=== PATIENT | male | born 1960 | race Caucasian/White ===

== ENCOUNTER 2016-06-17 18:00 | Inpatient (IN) | payer OTHER ==
[~2016-06-17 18:00] MED LIST: CEFEPIME HCL 2 GM in D5W 100 ML IV SCH
--- NOTE | 2016-06-17 18:22 | EDPHY ---
H & P Time Seen by Provider: 06/17/16 18:20 HPI/ROS: Chief complaint. Fever and low white blood cell count HPI. 56-year-old male with history of metastatic prostate cancer here with fever to 101.5 degrees. Last chemotherapy 12 days ago. Neutrophil count 600 today. Fever began yesterday. He does have sore throat but no cough, shortness of breath or abdominal pain. No urinary symptoms. Seen by oncologist today referred to the emergency department for admission. ROS Constitutional. Fever Eyes. no problems with vision ENT. Sore throat Cardiovascular. no chest pain Respiratory. no shortness of breath, no cough Abdominal. no abdominal pain, no nausea/vomiting, no diarrhea . no problems urinating MS. no calf pain/swelling, no neck/back pain, no joint pain Skin. no rash Lymph. no swollen glands Neuro. no headache, no dizziness, no difficulty walking or with speech Past Medical/Surgical History: Metastatic prostate cancer Social History: , nonsmoker, no alcohol Smoking Status: Never smoked Physical Exam: General Appearance: Alert well-developed male mild distress vital signs show temp 37.7degrees with heart rate 112. Blood pressure 110/69 Eyes: Pupils equal and round no pallor or injection. ENT, pharynx really has no injection or swelling. There is no exudate. No evidence for peritonsillar abscess. Respiratory: There are no retractions, lungs are clear to auscultation. Cardiovascular: Regular rate and rhythm. Gastrointestinal: Abdomen is soft and nontender, no masses, bowel sounds normal. Neurological: Awake and alert, sensory and motor exams grossly normal. Skin: Warm and dry, no rashes. Musculoskeletal: Neck is supple nontender. Extremities symmetrical, full range of motion. Psychiatric: Patient is oriented X 3, there is no agitation. Constitutional: Initial Vital Signs Temperature (C) 37.7 C 06/17/16 18:08 Heart Rate 112 H 06/17/16 18:08 Respiratory Rate 16 06/17/16 18:08 Blood Pressure 110/69 06/17/16 18:08 O2 Sat (%) 96 06/17/16 18:08 O2 Delivery Mode Room Air Allergies/Adverse Reactions: levofloxacin [From Levaquin] Allergy (Verified 06/17/16 18:07) Home Medications: Medication Instructions Recorded DOCEtaxel [Docetaxel] 1 dose IV .[id number] 06/17/16 Herbals/Supplements -Info Only 1 ea PO DAILY 06/17/16 LORazepam [Ativan (*)] 2 mg PO HS PRN 06/17/16 Lupron Im 1 dose IM .[id number] 06/17/16 Medical Decision Making - Diagnostics Imaging Results: Imaging Impressions Chest X-Ray 06/17/16 18:50 Impression: 1. Band of subsegmental atelectasis suspected at the left base. Otherwise, no active cardiopulmonary disease seen.. Chest x-ray interpreted by me is negative for pneumonia Procedures: IV normal saline. Septic workup 30 male per kg fluid bolus. Initial lactate positive at 2.3 Cefepime and vancomycin as recommended by patient's oncologist after blood cultures ED Course/Re-evaluation: Re-evaluation 7:15 p.m.. The patient, his , and I discussed treatment plan including need for admission and further evaluation. They expressed understanding and agreement I consulted and discussed the case with , hospitalist, who agrees to the admission Dr. Salazar oncology--[phone]. Differential Diagnosis: The patient has prostate cancer and neutropenic fever. I have considered pneumonia, urinary tract infection, sepsis as well - Data Points Laboratory Results: Laboratory Results 06/17/16 18:34 06/17/16 18:34 06/17/16 06/17/16 06/17/16 18:50 18:34 18:34 WBC RBC Hgb Hct MCV MCH MCHC RDW Plt Count MPV Neut % (Auto) Lymph % (Auto) Bledsoe % (Auto) Eos % (Auto) Baso % (Auto) Nucleat RBC Rel Count Absolute Neuts (auto) Absolute Lymphs (auto) Absolute Monos (auto) Absolute Eos (auto) Absolute Basos (auto) Absolute Nucleated RBC Immature Gran % Seg Neutrophils % Band Neutrophils % Lymphocytes % Monocytes % Eosinophils % Basophils % Immature Gran # Absolute Seg Neuts Absolute Band Neuts Absolute Lymphocytes Absolute Monocytes Absolute Eosinophils Absolute Basophils RBC/WBC/PLT Morphology Atypical Lymphocytes Platelet Estimate Smear Review By PT 13.5 SEC SEC (12.0-15.0) INR 1.04 (0.83-1.16) APTT 30.7 SEC SEC (23.0-38.0) VBG Lactic Acid 2.3 mmol/L H mmol/L (0.7-2.1) Sodium 137 mEq/L mEq/L (134-144) Potassium 4.0 mEq/L mEq/L (3.5-5.2) Chloride 101 mEq/L mEq/L (97-110) Carbon Dioxide 22 mEq/l mEq/l (22-31) Anion Gap 14 mEq/L mEq/L (8-16) BUN 13 mg/dL mg/dL (7-23) Creatinine 1.1 mg/dL mg/dL (0.7-1.3) Estimated GFR > 60 Glucose 159 mg/dL H mg/dL (70-100) Calcium 9.3 mg/dL mg/dL (8.5-10.4) Total Bilirubin 0.9 mg/dL mg/dL (0.1-1.4) 06/17/16 18:34 WBC 1.95 10^3/uL L 10^3/uL (3.80-9.50) RBC 4.60 10^6/uL 10^6/uL (4.40-6.38) Hgb 13.7 g/dL g/dL (13.7-17.5) Hct 40.1 % % (40.0-51.0) MCV 87.2 fL fL (81.5-99.8) MCH 29.8 pg pg (27.9-34.1) MCHC 34.2 g/dL g/dL (32.4-36.7) RDW 12.8 % % (11.5-15.2) Plt Count 266 10^3/uL 10^3/uL (150-400) MPV 9.2 fL fL (8.7-11.7) Neut % (Auto) Not Reported Lymph % (Auto) Not Reported Bledsoe % (Auto) Not Reported Eos % (Auto) Not Reported Baso % (Auto) Not Reported Nucleat RBC Rel Count 0.0 % % (0.0-0.2) Absolute Neuts (auto) Not Reported Absolute Lymphs (auto) Not Reported Absolute Monos (auto) Not Reported Absolute Eos (auto) Not Reported Absolute Basos (auto) Not Reported Absolute Nucleated RBC 0.00 10^3/uL 10^3/uL (0-0.01) Immature Gran % Not Reported Seg Neutrophils % 37 % % Band Neutrophils % 8 % % Lymphocytes % 29 % % Monocytes % 20 % % Eosinophils % 4 % % Basophils % 2 % % Immature Gran # Not Reported Absolute Seg Neuts 0.72 10^/uL L 10^/uL (1.70-6.50) Absolute Band Neuts 0.16 10^3/uL 10^3/uL (0.00-0.70) Absolute Lymphocytes 0.57 10^3/uL L 10^3/uL (1.00-3.00) Absolute Monocytes 0.39 10^3/uL 10^3/uL (0.30-0.80) Absolute Eosinophils 0.08 10^3/uL 10^3/uL (0.03-0.40) Absolute Basophils 0.04 10^3/uL 10^3/uL (0.02-0.10) RBC/WBC/PLT Morphology NORMAL (NORMAL) Atypical Lymphocytes 2+ H Platelet Estimate ADEQUATE (ADEQ) Smear Review By Pending PT INR APTT VBG Lactic Acid Sodium Potassium Chloride Carbon Dioxide Anion Gap BUN Creatinine Estimated GFR Glucose Calcium Total Bilirubin Medications Given: Discontinued Medications Cefepime HCl 2 gm/ Dextrose 100 mls @ 200 mls/hr IV EDNOW ONE PRN Reason: Protocol Stop: 06/17/16 19:18 Last Admin: 06/17/16 20:50 Dose: 100 mls Vancomycin/Sodium Chloride (Vancomycin 1 Gm (Premix)) 250 mls @ 250 mls/hr IV EDNOW ONE PRN Reason: Protocol Stop: 06/17/16 19:49 Last Admin: 06/17/16 19:34 Dose: 250 mls Sodium Chloride (Ns) 2,500 mls @ 5,000 mls/hr 30 ml/kg infuse over 30 min ( 2500 ml) IV EDNOW ONE Stop: 06/17/16 19:44 Last Admin: 06/17/16 19:34 Dose: 2,500 mls Departure - Departure Disposition: [facility] Inpatient Acute Clinical Impression: Neutropenic fever Condition: Fair
[2016-06-17] MEDS ORDERED: CEFEPIME HCL 2 GM in D5W 100 ML IV ONE (18:49)
[2016-06-17] MEDS ORDERED: VANCOMYCIN HCL/NORMAL SALINE 250 ML IV ONE (18:50)
[2016-06-17 18:56] LABS: ADD DIFF? YES; ADD MORPH? NO; ATYPICAL LYMPHOCYTE FLAG 50 (0-99); FRAGMENT RBC FLAG 0 (0-99); HEMATOCRIT 40.1 % (40.0-51.0); HEMOGLOBIN 13.7 g/dL (13.7-17.5); LIPEMIA HEMOLYSIS FLAG 90 (0-99); MEAN CELL HEMOGLOBIN 29.8 pg (27.9-34.1); MEAN CELL HEMOGLOBIN CONCENTR. 34.2 g/dL (32.4-36.7); MEAN CELL VOLUME 87.2 fL (81.5-99.8); MEAN PLATELET VOLUME 9.2 fL (8.7-11.7); PLATELET CLUMPS FLAG 0 (0-99); PLATELET COUNT 266 10^3/uL (150-400); RED CELL DISTRIBUTION WIDTH 12.8 % (11.5-15.2)
[2016-06-17 18:58] LABS: ADD SCAN? NO; LEFT SHIFT FLG 150 (0-99)
[2016-06-17 19:01] LABS: INR 1.04 (0.83-1.16); PROTIME(PATIENT) 13.5 SEC (12.0-15.0)
[2016-06-17 19:02] LABS: APTT 30.7 SEC (23.0-38.0)
[2016-06-17] MEDS ORDERED: NS 2,500 ML IV ONE (19:15)
[2016-06-17 19:21] LABS: ANION GAP 14 mEq/L (8-16); BILIRUBIN,TOTAL 0.9 mg/dL (0.1-1.4); CALCIUM 9.3 mg/dL (8.5-10.4); CARBON DIOXIDE 22 mEq/l (22-31); CHLORIDE 101 mEq/L (97-110); CREATININE 1.1 mg/dL (0.7-1.3); GLOMERULAR FILTRATION RATE > 60; GLUCOSE 159 mg/dL (70-100); SODIUM 137 mEq/L (134-144)
[2016-06-17] MEDS ORDERED: ONDANSETRON 4 MG/2 ML VIAL IVP PRN (19:38)
[2016-06-17 19:56] LABS: LACGHOST ORDER
[2016-06-17 19:59] LABS: COLOR YELLOW; LEUKOCYTE ESTERASE,URINE NEGATIVE (NEGATIVE); NITRITE,URINE NEGATIVE (NEGATIVE)
[2016-06-17 19:59] LABS: PLATELET ESTIMATE ADEQUATE (ADEQ)
--- NOTE | 2016-06-17 20:22 | GHP ---
[f rep st] HISTORY AND PHYSICAL DATE OF ADMISSION: 06/17/2016 CHIEF COMPLAINT: Fever. HISTORY: The patient is a 56-year-old male with metastatic prostate cancer undergoing chemotherapy at [facility]. He is on his 2nd round of chemo. He had a fever starting last nig ht. This morning it was 101.5. He contacted his oncologist, who did an outpatient blood draw and f ound him to be neutropenic and he was referred to the emergency room. He does complain of sore thro at for the last 2 days and lots of congestion and pain in his frontal sinuses that also show blood w hen he drains. He also recently, 2 weeks ago, had a ureteral dilation procedure at [facility] for some scar tissue and stricturing that occurred after his radical prostatectomy which he had last January. PAST MEDICAL HISTORY: Metastatic prostate cancer. PAST SURGICAL HISTORY: 1. Radical prostatectomy. 2. Bilateral inguinal hernia repair. MEDICATIONS: Please see computer record for full detailed list. ALLERGIES: Levaquin. SOCIAL HISTORY: No smoking. No alcohol. Lives with his . He has a guest relation officer. REVIEW OF SYSTEMS: Complete Review of Systems obtained. Review of Systems is negative regarding CO NSTITUTIONAL, HEENT, GI, PULMONARY, CARDIOVASCULAR, , HEMATOLOGY, SKIN, MUSCULOSKELETAL, ENDOCRINE , PSYCH except for positives as in HPI. FAMILY HISTORY: His mom lived to age 89. His father at age 62 of alcohol-related complication s. PHYSICAL EXAMINATION: GENERAL: Well-developed, well-nourished male, in no acute distress. VITAL S IGNS: Temperature is 37.7, pulse 112, blood pressure 110/69, saturating 96% on room air. HEENT: Ey es: Normal conjunctivae. Pupils are equal and reactive to light. ENT: Normal ears, nose. Hearing intact. Normal lips and teeth. Oropharynx moist. There is no thrush, no oral ulcers. NECK: Trac hea midline. No thyromegaly. CHEST: Normal respiratory effort. LUNGS: Clear to auscultation bonnie aterally. CARDIOVASCULAR: Regular rhythm. No murmur. No lower extremity edema. ABDOMEN: Soft, nontender. No hepatosplenomegaly. SKIN: Warm, dry, intact. No rash. MUSCULOSKELETAL: No cyanos is or clubbing. Strength 5/5 upper and lower extremities. NEUROLOGIC: Cranial nerves intact. Nor mal sensation to light touch. PSYCH: Alert and oriented x3. Normal affect. Normal judgment. Nor mal insight. Normal memory. LABORATORY DATA: White count 1.95. The differential is pending. Hematocrit 40, platelets 266. So dium 137, potassium 4.0, chloride 101, bicarb 22, BUN 13, creatinine 1.11, glucose 159. INR is 1.04 . Lactate is 2.3. Chest x-ray is negative. This case was discussed with Dr. Dodson, emergency room physician. He spoke with the oncologist at [facility] and cefepime and vancomycin were recommended as antibiotics. ASSESSMENT/PLAN: 1. Neutropenic fever. His oncologist at [facility] recommended cefepime and vancomycin wh ich I will continue. Blood cultures are pending. I would think we could discontinue vancomycin ana n if his cultures remain negative as he does not have any indwelling port or line. We will investig ate for possible source of fever including checking a urinalysis. Will check him for strep throat. He could have sinusitis. This should all be adequately covered with antibiotics discussed above. 2. Severe sepsis. He will be placed on sepsis protocol. 3. Metastatic prostate cancer. Chemotherapy through [facility]. 4. Urethral stricture, status post recent dilation. As above, we will check a urinalysis as a poss ible source of fever. CODE STATUS: Full. ADMISSION STATUS: Will admit to inpatient as he is ill. Anticipate greater than [address] abilization. DVT PROPHYLAXIS: He is high risk. Will place him on subcu Lovenox. /[id number]/MODL
[2016-06-17] MEDS: NS 1,000 ML IV SCH (21:22)
[2016-06-17] MEDS: ACETAMINOPHEN 325 MG TAB PO PRN (21:22)
[2016-06-17] MEDS ORDERED: oxyCODONE IR 5 MG TAB PO PRN (21:46)
[2016-06-17] MEDS ORDERED: LORazepam 1 MG TAB PO PRN (21:46)
[2016-06-17] MEDS: LORazepam 0.5 MG TAB PO PRN (22:47)
[2016-06-18] MEDS: ACETAMINOPHEN 325 MG TAB PO PRN ×2 (04:33→17:55)
[2016-06-18] MEDS: LORazepam 0.5 MG TAB PO PRN (04:33)
[2016-06-18 04:37] LABS: ADD DIFF? YES; ADD MORPH? NO; ADD SCAN? NO; ATYPICAL LYMPHOCYTE FLAG 30 (0-99); FRAGMENT RBC FLAG 0 (0-99); HEMATOCRIT 36.6 % (40.0-51.0); HEMOGLOBIN 12.4 g/dL (13.7-17.5); LEFT SHIFT FLG 90 (0-99); LIPEMIA HEMOLYSIS FLAG 90 (0-99); MEAN CELL HEMOGLOBIN 29.6 pg (27.9-34.1); MEAN CELL HEMOGLOBIN CONCENTR. 33.9 g/dL (32.4-36.7); MEAN CELL VOLUME 87.4 fL (81.5-99.8); MEAN PLATELET VOLUME 9.4 fL (8.7-11.7); PLATELET CLUMPS FLAG 20 (0-99); PLATELET COUNT 220 10^3/uL (150-400); RED BLOOD CELL COUNT 4.19 10^6/uL (4.40-6.38); RED CELL DISTRIBUTION WIDTH 12.9 % (11.5-15.2)
[2016-06-18] MEDS: CEFEPIME HCL 2 GM in D5W 100 ML IV SCH ×3 (04:37→22:34)
[2016-06-18 04:40] LABS: ALANINE AMINOTRANSFERASE 57 IU/L (21-72); ALBUMIN 3.3 g/dL (3.5-5.0); ALKALINE PHOSPHATASE 77 IU/L (38-126); ANION GAP 6 mEq/L (8-16); ASPARTATE AMINOTRANSFERASE 39 IU/L (17-59); BILIRUBIN-CONJUGATED 0.4 mg/dL (0.0-0.5); BILIRUBIN-UNCONJUGATED 0.6 mg/dL (0.0-1.1); CALCIUM 7.8 mg/dL (8.5-10.4); CARBON DIOXIDE 22 mEq/l (22-31); CHLORIDE 109 mEq/L (97-110); CREATININE 0.9 mg/dL (0.7-1.3); GLOMERULAR FILTRATION RATE > 60; GLUCOSE 112 mg/dL (70-100); POTASSIUM 4.2 mEq/L (3.5-5.2); SODIUM 137 mEq/L (134-144); TOTAL PROTEIN 5.8 g/dL (6.3-8.2)
[2016-06-18 05:31] LABS: PLATELET ESTIMATE ADEQUATE (ADEQ); TOXIC GRANULATION PRESENT
[2016-06-18] MEDS: ENOXAPARIN 40 MG/0.4 ML SYR SC SCH (09:05)
[2016-06-18] MEDS: VANCOMYCIN HCL/NORMAL SALINE 250 ML IV SCH ×2 (09:05→19:58)
[2016-06-18] MEDS: NS 1,000 ML IV SCH ×2 (09:05→19:58)
--- NOTE | 2016-06-18 09:45 | SOAPPROG ---
SOAP Progress Note Assessment/Plan: Assessment: 56 yo male w/ metastatic prostate ca undergoing chemo at [facility], presented w/ fever and neutropenia to ER last night after labs returned earlier in the day to [facility] w/ neutropenia. Had elev lactate level as well, sepsis protocol initiated last night. Lactate has normalized. -febrile neutropenia - on vanco/cefepime - concern w/ possible rash from vanco - watching closely, is getting second dose. Watching blood cultures, will taper abx as able. Afebrile since 22:30 last night, chills and shakes resolved so far. Labs show slight improvement in wbc count, has bands increased though. Throat cx pending, ua neg, cxr neg. Most likely source is sinusitis - has had a lot of congestion and fullness samuel R maxillary sinus and nares for the past week. Cefepime covering well, may be able to ultimately change to ceftin depending on bcx results/progress. -metastatic prostate ca - per [facility] on chemo and lupron. May need some adjustment of chemo due to the neutropenia for next round. -h/o recent ureteral stricture (2 weeks ago) - UA neg, no dysuria. -dvt proph - on lovenox, ambulate. Plan: 06/18/16 09:34 Subjective: Feeling better, no further chills, good appetite, ate breakfast Objective: Vital Signs Temp Pulse Resp BP Pulse Ox 37.3 C 89 16 121/72 H 97 06/18/16 08:30 06/18/16 08:30 06/18/16 08:30 06/18/16 08:30 06/18/16 08:30 Laboratory Results 06/18/16 04:20 06/18/16 04:20 06/17/16 06/18/16 06/19/16 05:59 05:59 05:59 Intake Total 6400 Output Total 2000 Balance 4400 PT 13.5 SEC (12.0-15.0) 06/17/16 18:34 INR 1.04 (0.83-1.16) 06/17/16 18:34 Gen: A&O x 3, pleasant Heent: perrl, eomi, few scabs on back of neck from localized folliculitis w/ picking at it, alopecia from chemo Neck: soft/supple, no BHAVANI Chest: cta b w/ slightly decreased bs bilat bases CV: rrr nl s1 s2 Abd: soft nt/nd Ext: no edema, 2+ pulses Psych: has some anxiety, lorazepam helping ICD10 Worksheet Patient Problems: Problems Problem Status Onset Neutropenic fever Acute
[2016-06-19 05:32] LABS: ADD DIFF? YES; ADD MORPH? NO; ADD SCAN? YES; ATYPICAL LYMPHOCYTE FLAG 50 (0-99); FRAGMENT RBC FLAG 0 (0-99); HEMATOCRIT 34.1 % (40.0-51.0); HEMOGLOBIN 11.7 g/dL (13.7-17.5); LIPEMIA HEMOLYSIS FLAG 90 (0-99); MEAN CELL HEMOGLOBIN 29.1 pg (27.9-34.1); MEAN CELL HEMOGLOBIN CONCENTR. 34.3 g/dL (32.4-36.7); MEAN CELL VOLUME 84.8 fL (81.5-99.8); PLATELET CLUMPS FLAG 0 (0-99); PLATELET COUNT 225 10^3/uL (150-400); RED BLOOD CELL COUNT 4.02 10^6/uL (4.40-6.38); RED CELL DISTRIBUTION WIDTH 12.8 % (11.5-15.2)
[2016-06-19 05:43] LABS: ANION GAP 5 mEq/L (8-16); CALCIUM 8.3 mg/dL (8.5-10.4); CARBON DIOXIDE 23 mEq/l (22-31); CHLORIDE 108 mEq/L (97-110); CREATININE 0.8 mg/dL (0.7-1.3); GLOMERULAR FILTRATION RATE > 60; GLUCOSE 149 mg/dL (70-100); SODIUM 136 mEq/L (134-144)
[2016-06-19 05:52] LABS: LEFT SHIFT FLG 130 (0-99)
[2016-06-19] MEDS: ACETAMINOPHEN 325 MG TAB PO PRN ×2 (06:13→17:21)
[2016-06-19] MEDS: NS 1,000 ML IV SCH ×2 (06:14→17:39)
[2016-06-19] MEDS: CEFEPIME HCL 2 GM in D5W 100 ML IV SCH ×3 (06:14→21:36)
[2016-06-19 06:46] LABS: PLATELET ESTIMATE ADEQUATE (ADEQ); POLYCHROMASIA 1+
[2016-06-19 06:48] LABS: TOXIC GRANULATION PRESENT
[2016-06-19] MEDS: VANCOMYCIN HCL/NORMAL SALINE 250 ML IV SCH (08:48)
[2016-06-19] MEDS: ENOXAPARIN 40 MG/0.4 ML SYR SC SCH (08:48)
[2016-06-19] MEDS ORDERED: SODIUM CL NASAL GEL 14.1 GM TUBE TP PRN (14:28)
--- NOTE | 2016-06-19 16:43 | SOAPPROG ---
SOAP Progress Note Assessment/Plan: Assessment: Plan: 06/19/16 16:51 Neutropenic fever: making progress on Vancomycin, Cefepime. WBC a little better today. Low grade temps. Blood cx negative so far. Will continue IV antibx until cx negative for 72 hours, then possibly switch to PO antibx. Maybe home tomorrow. Metastatic prostate cancer: reports that his oncologist is still anticipating next round of chemo for next week despite neutropenia. Subjective: Feeling a little better today. Rash has resolved. Sinuses feel congested but perhaps a little better. Had low grade temp 37.6 this morning, mild temp late yesterday afternoon to 38. WBC is slightly improved. Blood cx remain negative. He is tolerating vancomycin and cefepime without difficulty. Objective: Vital Signs Temp Pulse Resp BP Pulse Ox 37.7 C 96 16 121/76 H 97 06/19/16 15:57 06/19/16 15:57 06/19/16 15:57 06/19/16 15:57 06/19/16 15:57 Laboratory Results 06/19/16 05:10 06/19/16 05:10 06/18/16 06/19/16 06/20/16 05:59 05:59 05:59 Intake Total 6400 2432 1306 Output Total 1999 4000 1575 Balance 4400 -1568 -269 PT 13.5 SEC (12.0-15.0) 06/17/16 18:34 INR 1.04 (0.83-1.16) 06/17/16 18:34 General: alert, well-nourished, NAD Neck: no masses, adenopathy Lungs: clear Cardiovascular: RRR without murmur Extremities: no edema ICD10 Worksheet Patient Problems: Problems Problem Status Onset Neutropenic fever Acute
[2016-06-19] MEDS: CETIRIZINE 10 MG TAB PO SCH (17:21)
[2016-06-19] MEDS: LORazepam 0.5 MG TAB PO PRN ×2 (17:38→21:38)
[2016-06-19] MEDS: VANCOMYCIN 1.25 GM in D5W 250 ML IV SCH (20:11)
[2016-06-19] MEDS ORDERED: GUAIFENESIN/DM 10 ML UDCUP PO PRN (20:54)
[2016-06-20] MEDS: ACETAMINOPHEN 325 MG TAB PO PRN (05:07)
[2016-06-20] MEDS: CEFEPIME HCL 2 GM in D5W 100 ML IV SCH ×2 (05:08→14:56)
[2016-06-20] MEDS: NS 1,000 ML IV SCH (05:10)
[2016-06-20 05:16] LABS: ADD DIFF? YES; ADD MORPH? NO; ADD SCAN? NO; ATYPICAL LYMPHOCYTE FLAG 40 (0-99); FRAGMENT RBC FLAG 0 (0-99); HEMATOCRIT 36.5 % (40.0-51.0); HEMOGLOBIN 12.5 g/dL (13.7-17.5); LEFT SHIFT FLG 90 (0-99); LIPEMIA HEMOLYSIS FLAG 90 (0-99); MEAN CELL HEMOGLOBIN 29.6 pg (27.9-34.1); MEAN CELL HEMOGLOBIN CONCENTR. 34.2 g/dL (32.4-36.7); MEAN CELL VOLUME 86.3 fL (81.5-99.8); MEAN PLATELET VOLUME 9.2 fL (8.7-11.7); PLATELET CLUMPS FLAG 0 (0-99); PLATELET COUNT 268 10^3/uL (150-400); RED BLOOD CELL COUNT 4.23 10^6/uL (4.40-6.38); RED CELL DISTRIBUTION WIDTH 12.8 % (11.5-15.2)
[2016-06-20 06:16] LABS: PLATELET ESTIMATE ADEQUATE (ADEQ); POLYCHROMASIA 1+
[2016-06-20 08:16] VITALS: RESP 18
[2016-06-20] MEDS: VANCOMYCIN 1.25 GM in D5W 250 ML IV SCH (08:52)
--- NOTE | 2016-06-20 09:37 | SOAPPROG ---
SOAP Progress Note Assessment/Plan: Assessment: 56 yo male w/ metastatic prostate ca undergoing chemo at [facility], presented w/ fever and neutropenia to ER last night after labs returned earlier in the day to [facility] w/ neutropenia. Had elev lactate level as well, sepsis protocol initiated last night. Lactate has normalized. -febrile neutropenia - on vanco/cefepime - concern w/ possible rash from vanco - watching closely, is getting second dose. Watching blood cultures, will taper abx as able. Afebrile since 22:30 last night, chills and shakes resolved so far. Labs show slight improvement in wbc count, has bands increased though. Throat cx pending, ua neg, cxr neg. Most likely source is sinusitis - has had a lot of congestion and fullness samuel R maxillary sinus and nares for the past week. Cefepime covering well, may be able to ultimately change to ceftin depending on bcx results/progress. -metastatic prostate ca - per [facility] on chemo and lupron. May need some adjustment of chemo due to the neutropenia for next round. -h/o recent ureteral stricture (2 weeks ago) - UA neg, no dysuria. -dvt proph - on lovenox, ambulate. Plan: 06/18/16 09:34 06/20/16 09:33 56 yo male w/ febrile neutropenia- -bcx neg so far, will be 72 hours later today. If remains neg by later this afternoon and remains afebrile and feeling ok will d/c home with ceftin. Will send prescription to [facility] directly so his spouse can pick it up today to have it ready to go. Continues to have sinus drainage which is likely source , finds some relief with the topical nasal gel and antihistamine. Will have him continue as outpt. -metastatic prostate ca - has f/u next week and is supposed to have chemo next Fri w/ nulasta likely in addition. -dvt proph - lovenox, ambulate -dispo - likely d/c home late this afternoon see above. Subjective: Doing better overall, anxious to go home if possible Objective: Vital Signs Temp Pulse Resp BP Pulse Ox 36.9 C 83 18 114/78 90 L 06/20/16 08:05 06/20/16 08:05 06/20/16 08:05 06/20/16 08:05 06/20/16 08:05 Laboratory Results 06/20/16 04:56 06/19/16 05:10 06/19/16 06/20/16 06/21/16 05:59 05:59 05:59 Intake Total 2432 5275 600 Output Total 4000 3625 700 Balance -1568 1650 -100 PT 13.5 SEC (12.0-15.0) 06/17/16 18:34 INR 1.04 (0.83-1.16) 06/17/16 18:34 Gen: A&O x 3, spouse at bedside, in brighter spirits HEENT: drainage R nares, alopecia from chemo CHest: some scattered rhonchi on R CV: rrr nl s1 s2 Abd: soft nt nd Ext: 2+ pulses bilat - Pending Discharge Pending Discharge Within 24 Hours: Yes Pending Discharge Date: 06/21/16 Pending Discharge Time: 11:00 ICD10 Worksheet Patient Problems: Problems Problem Status Onset Neutropenic fever Acute
[2016-06-20] MEDS: ENOXAPARIN 40 MG/0.4 ML SYR SC SCH (10:40)
[2016-06-20] MEDS: CETIRIZINE 10 MG TAB PO SCH (10:40)
[2016-06-20 16:02] VITALS: BP 113/67; PULSE 88; TEMP 99; O2SAT 92
--- NOTE | 2016-06-20 19:53 | GDS ---
[f rep st] DISCHARGE SUMMARY The patient is a 56-year-old male admitted with neutropenic fever. On 2016, he had had labs drawn at his oncologist's down in [place], and he was called telling him that his neutrophil count was low at 600. He had been feeling crummy and on that day had a fever up to 101.5 at home. He was instructed by Oncology to go to the ER in [place] for further workup and admission. He has known metastatic prostate cancer and is undergoing chemo with his cycles every 3 weeks, and he has completed his 2nd cycle. He reports that over the few days prior to admission, he had been having a lot of nasal congestion, and some headache and sore throat. His also had a sore throat and then it progressively got worse. He had been out in the community a lot with the Holy season and exposure to lots of viruses and illnesses. During hospital admission, he had blood cultures x2 drawn, urine culture, throat swab. To date everything has remained negative. He was treated with cefepime and vancomycin through 72 hours of negative blood cultures. At that point, he is being switched over to Ceftin 500 mg p.o. b.i.d. for an additional 5 days that he will take as an outpatient, and he will follow up with his oncologist next week. He is to start a 3rd round of chemo. This time, he will have additional Neulasta to help with his white cell count. He will follow up with his PCP as needed, and if he has any questions, concerns, or return of fever, or feeling worse, to immediately let his physicians know. During hospitalization he also had a chest x-ray which showed a little bit of atelectasis, but no active disease. His WBC count improved from 0.6 to 4.18. DISCHARGE MEDICATIONS: Include Ceftin 500 mg p.o. b.i.d. x5 additional days, [place] saline nasal gel topically p.r.n., cetirizine or Zyrtec 10 mg p.o. daily, lorazepam 0.5 mg p.o. q.h.s. p.r.n. for sleep, and he will resume chemotherapy and Lupron. /[id number]/MODL MTDD
== END 2016-06-20 18:12 | disposition home or self-care (01) | DRG 810 ==
LOC: F1N 20:50
PROVIDERS: ADMIT Internal Medicine; ATTEND Internal Medicine
DX: D70.9 Neutropenia, unspecified (principal); C61 Malignant neoplasm of prostate
CPT/HCPCS: 96374; J0692; J1650; J3370

== ENCOUNTER → 2017-03-12 | Outpatient (CLI) | payer OTHER | LOC: FIMAGING 09:23 | PROVIDERS: ATTEND Internal Medicine | DX: Z13.820 Encounter for screening for osteoporosis (principal); M81.0 Age-related osteoporosis without current pathological fracture; Z85.46 Personal history of malignant neoplasm of prostate ==

== ENCOUNTER → 2017-07-01 | Outpatient (CLI) | payer OTHER ==
[~2017-07-01] MED LIST changes: -CEFEPIME HCL 2 GM in D5W 100 ML IV SCH; +IOPAMIDOL (ISOVUE-300) 100 ML BTL ONE
== END ==
LOC: FIMAGING 09:56
PROVIDERS: ATTEND Internal Medicine
DX: R91.1 Solitary pulmonary nodule (principal); C61 Malignant neoplasm of prostate
CPT/HCPCS: Q9967